=== PATIENT | female | born 1995 | race Caucasian/White ===

== ENCOUNTER 2021-06-18 21:01 | Emergency (ER) | payer OTHER ==
[~2021-06-18] VITALS: Ht 162.6 cm; Wt 90.7 kg
[2021-06-19] MEDS ORDERED: BENZONATATE 100 MG CAPSULE PO ONE (03:00)
[2021-06-19] MEDS ORDERED: ACETAMINOPHEN 500 MG TABLET PO ONE (03:00)
[2021-06-19] MEDS ORDERED: BENZ-17 PO (03:09)
[2021-06-19] MEDS ORDERED: AZIT250T PO (03:09)
[2021-06-19 03:39] VITALS: BP 126/70
== END 2021-06-19 03:41 | disposition home or self-care (01) ==
LOC: EDBD 21:01 → EDH 21:01
DX: U07.1 COVID-19 (principal); J06.9 Acute upper respiratory infection, unspecified
CPT/HCPCS: 71045; 87635; 87804 ×2; 99284; C9803